=== PATIENT | male | born 1960 | race Caucasian/White ===

== ENCOUNTER 2017-08-18 19:16 | Emergency (ER) | payer BC, OTHER ==
--- NOTE | 2017-08-18 21:12 | UC ---
Upper Extremity HPI - HPI Summary HPI Summary: 57 y/o male presents to the urgent care c/o LF elbow swelling, mild pain and warm to touch since Thursday08/16/2017. Pt reports he had Hx of cellulitis over the last summer 2016 around that area. However his notice his left elbow was swollen on Thursday. Pain is dull 2/10 at touch . He can feel some fluid inside. Pt denies fever, Hx of gout, RA, SOB, numbness or tingling, chest pain, abdominal pain, N/V/D. He has been taking Naproxen PO since this morning. Last taken at 1800pm. - History of Current Complaint Chief Complaint: UCUpperExtremity Stated Complaint: LEFT ELBOW SKIN COMPLAINT Time Seen by Provider: 08/18/17 21:10 Hx Obtained From: Patient Onset/Duration: Gradual Onset, Lasting Days - 3 days, Still Present, Worse Since - today increasing swelling Severity Initially: Mild Severity Currently: Mild Pain Intensity: 2 Pain Scale Used: 0-10 Numeric Location Of Pain: Is Discrete @ - left elbow Character: Dull Aggravating Factor(s): Other - touch Alleviating Factor(s): OTC Meds - Naproxen PO, Rest Associated Signs And Symptoms: Positive: Swelling, Redness. Negative: Fever, Numbness/Tingling - Risk Factors Non-Orthopedic Risk Factor: Negative DVT Risk Factors: Negative Septic Arthritis Risk Factor: Negative - Allergies/Home Medications Allergies/Adverse Reactions: Allergies Allergy/AdvReac Type Severity Reaction Status Date / Time No Known Allergies Allergy Verified 08/18/17 20:00 Home Medications: Home Medications Aspirin Low Dose CHEW TAB* [Aspirin Low Dose TAB*] 81 mg PO DAILY 08/18/17 [ History Confirmed 08/18/17] Milk Thistle (Silybum [place]um [Milk Thistle] 1,000 mg PO 08/18/17 [History] Naproxen Sodium [Naproxen Sodium 220 mg] 220 mg PO PRN 08/18/17 [History] [place]-3 Fatty Acids [Fish Oil] 1,000 mg PO DAILY 08/18/17 [History Confirmed ] Ramipril CAP* [Altace CAP*] 1.25 mg PO DAILY 08/18/17 [History Confirmed ] Sitagliptin Phosphate [Januvia] 25 mg PO 08/18/17 [History] glipiZIDE TAB* [Glucotrol TAB*] 5 mg PO BID 08/18/17 [History Confirmed 08/18/17 ] metFORMIN* [Glucophage 500 MG TAB *] 500 mg PO TID 08/18/17 [History Confirmed 08/18/17] PMH/Surg Hx/FS Hx/Imm Hx Previously Healthy: Yes Endocrine History: Diabetes, Dyslipidemia - Surgical History Surgical History: None - Family History Known Family History: Positive: Cardiac Disease, Hypertension, Diabetes - Social History Occupation: Employed Full-time Lives: With Family Alcohol Use: Occasionally Substance Use Type: None Smoking Status (MU): Heavy Every Day Tobacco Smoker Type: Cigarettes Amount Used/How Often: 1 PPD Have You Smoked in the Last Year: Yes Household Exposure Type: Cigarettes - Immunization History Most Recent Influenza Vaccination: FALL 2016 Review of Systems Constitutional: Negative Skin: Negative Eyes: Negative ENT: Negative Respiratory: Negative Cardiovascular: Negative Gastrointestinal: Negative Genitourinary: Negative Motor: Negative Neurovascular: Negative Musculoskeletal: Other: - left elbow pain, with swelling and warm Neurological: Negative Psychological: Negative Is Patient Immunocompromised?: No All Other Systems Reviewed And Are Negative: Yes Physical Exam Triage Information Reviewed: Yes Vital Signs: Initial Vital Signs Temp 98.5 F 08/18/17 20:04 Pulse 82 08/18/17 20:04 Resp 18 08/18/17 20:04 BP 140/90 08/18/17 20:04 Pulse Ox 100 08/18/17 20:04 - Additional Comments Vital Signs Reviewed: Yes General: well developed, well nourished male sitting in the examining table w/o any apparent distress Eye Exam: Normal Eyes: Positive: Conjunctiva Clear - PERRLA, EOMI, fundi grossly normal ENT: Positive: Normal ENT inspection, Hearing grossly normal, Pharynx normal, TMs normal Neck: Positive: Supple, Nontender, No Lymphadenopathy Respiratory: Positive: Chest non-tender, Lungs clear, Normal breath sounds, No respiratory distress Cardiovascular: Positive: RRR, No Murmur, Pulses Normal, Brisk Capillary Refill Abdomen Description: Positive: Nontender, No Organomegaly, Soft. Negative: CVA Tenderness (R), CVA Tenderness (L) Bowel Sounds: Positive: Present Musculoskeletal: Positive: Strength Intact, ROM Intact, No Edema Neurological: Positive: Alert, Muscle Tone Normal Psychological Exam: Normal Skin: Positive: rashes - Positive left elbow swollen and warm to palpation and mild erythema with fluid sac taht is movable, mildly tender to palpitation, FROM of left elbow. positive capillary refill, pulses and sensation WNL. Upper Extremity Course/Dx - Course Course Of Treatment: 57 y/o male presents to the urgent care c/o LF elbow swelling, mild pain and warm to touch since Thursday08/16/2017. Pt reports he had Hx of cellulitis over the last summer 2016 around that area. However his notice his left elbow was swollen on Thursday. Pain is dull 2/10 at touch . He can feel some fluid inside. Pt denies fever, Hx of gout, RA, SOB, numbness or tingling, chest pain, abdominal pain, N/V/D. He has been taking Naproxen PO since this morning. Last taken at 1800pm. Pt with bursitis on examination - Differential Dx/Diagnosis Differential Diagnosis/HQI/PQRI: Arthritis, Bursitis, Contusion, Septic Arthritis, Strain, Sprain Provider Diagnoses: 1- Left elbow bursitis. 2- Elevated BP w/o Hx of HTN - Physician Notification/Consults Discussed Patient Care With: Arjun Wang - Dr Wang agreed with plan of care Discharge - Discharge Plan Condition: Stable Disposition: HOME Prescriptions: Sulfamethox/Trimethoprim DS* [Bactrim DS 800/160 TAB*] 1 tab PO BID #19 tab Patient Education Materials: Elbow Bursitis (ED), Low Sodium Diet (ED) Referrals: [facility] [place] [facility]ERR[facility] [Outside] Additional Instructions: 1-Please take full course of Antibiotic. Continue taken Naproxen PO 500mg PO q6- 8hrs prn you has at home to decrease swelling and pain. Apply cold compresses 2- If redness and swelling doubles in size after 48 hrs of taking antibiotic and fever develops please go to the ER immediately. 3-Avoid flexing your elbow , keep it elevated and keep wound clean and dry. 4-Please F/u with your PCP in 2 days to see if symptoms are improving 5-Your BP is elevated today. please decrease salt in your diet, monitor BP and if it continues to be elevated please f/u with your PCP for further management
[2017-08-18] MEDS ORDERED: Sulfamethox/Trimethoprim DS 800/160* TAB PO ONE (21:23)
== END 2017-08-18 21:55 | disposition home or self-care (01) ==
LOC: UCCORT 19:16
DX: M70.32 Other bursitis of elbow, left elbow (principal); Y93.9 Activity, unspecified; R03.0 Elevated blood-pressure reading, without diagnosis of hypertension; E11.9 Type 2 diabetes mellitus without complications; Z79.84 Long term (current) use of oral hypoglycemic drugs; E78.5 Hyperlipidemia, unspecified; Z79.82 Long term (current) use of aspirin; F17.210 Nicotine dependence, cigarettes, uncomplicated
CPT/HCPCS: 99202; A9270-GY; G0463